=== PATIENT | male | born 1960 | race Caucasian/White ===

== ENCOUNTER 2018-06-19 | Emergency (ER) | payer OTHER ==
[~2018-06-19] VITALS: Ht 177.8 cm; Wt 134.7 kg
[~2018-06-19] MED LIST: ALBUTEROL2.5 MG/3 M IH; ALLEGRA-D 12 H1 EACH PO; ZITHROMAX500 MG PO; ZYNCOF 20-400120 ML PO
[2018-06-19] MEDS ORDERED: KETO10TA2 PO (03:30)
[2018-06-19] MEDS ORDERED: LEVAQUIN750 MG PO (03:30)
[2018-06-19] MEDS ORDERED: MUPIROCIN22 GM TOP (03:30)
[2018-06-19] MEDS ORDERED: ADALAT CC30 MG PO (03:32)
== END 2018-06-19 03:45 | disposition home or self-care (01) ==
LOC: ER
DX: S60.410A Abrasion of right index finger, initial encounter (principal); L08.9 Local infection of the skin and subcutaneous tissue, unspecified; W22.8XXA Striking against or struck by other objects, initial encounter; Y93.89 Activity, other specified; Y92.89 Other specified places as the place of occurrence of the external cause; Y99.8 Other external cause status; I10 Essential (primary) hypertension

== ENCOUNTER 2018-08-20 12:26 | Emergency (ER) | payer OTHER ==
[~2018-08-20] VITALS: Ht 177.8 cm; Wt 131.5 kg
[~2018-08-20 12:26] MED LIST changes: +ADALAT CC30 MG PO; +KETO10TA2 PO; +LEVAQUIN750 MG PO; +MUPIROCIN22 GM TOP
[2018-08-20] MEDS ORDERED: TESSALON PERLE100 M1 PO (14:08)
== END 2018-08-20 15:17 | disposition home or self-care (01) ==
LOC: ER 12:26
DX: B34.9 Viral infection, unspecified (principal)

== ENCOUNTER 2021-05-16 08:02 | Emergency (ER) | payer OTHER ==
[~2021-05-16] VITALS: Ht 177.8 cm; Wt 147.4 kg
[~2021-05-16 08:02] MED LIST changes: +TESSALON PERLE100 M1 PO
[2021-05-16] MEDS ORDERED: COZAAR25 MG (08:15)
[2021-05-16] MEDS ORDERED: HYDROCHLOROTHIA25 MG (08:15)
[2021-05-16] MEDS ORDERED: TESSALON PERLE100 M1 PO (12:24)
[2021-05-16] MEDS ORDERED: TUSSIN DM SYRU118 ML PO (12:24)
[2021-05-16] MEDS ORDERED: ZITHROMAX500 MG PO (12:24)
[2021-05-16] MEDS ORDERED: MEDROLPACK PO (12:24)
== END 2021-05-16 12:34 | disposition home or self-care (01) ==
LOC: ER 08:02
DX: J06.9 Acute upper respiratory infection, unspecified (principal); Z03.818 Encounter for observation for suspected exposure to other biological agents ruled out

== ENCOUNTER 2021-06-06 12:45 | Emergency (ER) | payer OTHER ==
[~2021-06-06] VITALS: Ht 175.3 cm; Wt 149.7 kg
[~2021-06-06 12:45] MED LIST changes: +COZAAR25 MG; +HYDROCHLOROTHIA25 MG; +MEDROLPACK PO; +TUSSIN DM SYRU118 ML PO
[2021-06-06] MEDS ORDERED: INTESTINEX680 M1 PO (16:29)
[2021-06-06] MEDS ORDERED: BACTRIM DS TAB1 EACH PO (16:29)
== END 2021-06-06 17:12 ==
LOC: ER 12:45
DX: L03.116 Cellulitis of left lower limb (principal); R53.81 Other malaise; I10 Essential (primary) hypertension

== ENCOUNTER 2021-06-14 07:39 | Outpatient (CLI) | payer OTHER ==
[~2021-06-14 07:39] MED LIST changes: +BACTRIM DS TAB1 EACH PO; +INTESTINEX680 M1 PO
== END 2021-06-14 07:50 | disposition home or self-care (01) ==
LOC: NUCLEAR 07:39
PROVIDERS: ATTEND Surgery
DX: I73.9 Peripheral vascular disease, unspecified (principal)

== ENCOUNTER 2021-06-15 08:42 | Outpatient (CLI) | payer OTHER | END 2021-06-15 08:45 | disposition home or self-care (01) | LOC: NUCLEAR 08:42 | PROVIDERS: ATTEND Surgery | DX: I87.2 Venous insufficiency (chronic) (peripheral) (principal) ==

== ENCOUNTER 2021-09-23 17:44 | Emergency (ER) | payer OTHER ==
[~2021-09-23] VITALS: Ht 175.3 cm; Wt 154.2 kg
== END 2021-09-23 20:46 | disposition home or self-care (01) ==
LOC: ER 17:44
DX: U07.1 COVID-19 (principal); I10 Essential (primary) hypertension

== ENCOUNTER 2021-09-25 08:03 | Emergency (ER) | payer OTHER ==
[~2021-09-25] VITALS: Ht 177.8 cm; Wt 154.2 kg
[2021-09-25] MEDS ORDERED: NORFLEX100MG PO (18:00)
[2021-09-25] MEDS ORDERED: TUSSI PRES-B L480 ML PO (18:00)
[2021-09-25] MEDS ORDERED: MEDROLPACK PO (18:00)
== END 2021-09-25 18:22 | disposition home or self-care (01) ==
LOC: ER 08:03
DX: U07.1 COVID-19 (principal); R05.8 Other specified cough